=== PATIENT | male | born 1980 | race Caucasian/White ===

== ENCOUNTER 2017-08-24 06:34 | Emergency (ER) | payer BC ==
[2017-08-24 06:39] VITALS: BP 147/98; PULSE 84; RESP 20; TEMP 97.9; O2SAT 100
--- NOTE | 2017-08-24 06:58 | EDPHY ---
H & P Stated Complaint: W/D FROM [facility], PANIC ATTACK. LAST ONE ON TUESDAY Time Seen by Provider: 08/24/17 06:55 - Personal History Current Tetanus/Diphtheria Vaccine: Yes Current Tetanus Diphtheria and Acellular Pertussis (TDAP): Yes - Medical/Surgical History Hx Asthma: No Hx Chronic Respiratory Disease: No Hx Diabetes: No Hx Cardiac Disease: No Hx Renal Disease: No Hx Cirrhosis: No Hx Alcoholism: No Hx HIV/AIDS: No Hx Splenectomy or Spleen Trauma: No Other PMH: depression anxiety - Social History Smoking Status: Current every day smoker Constitutional: Initial Vital Signs Temperature (C) 36.6 C 08/24/17 06:36 Heart Rate 84 08/24/17 06:36 Respiratory Rate 20 08/24/17 06:36 Blood Pressure 147/98 H 08/24/17 06:36 O2 Sat (%) 100 08/24/17 06:36 O2 Delivery Mode Room Air Allergies/Adverse Reactions: escitalopram oxalate [From Lexapro] Allergy (Unverified 08/24/17 06:39) can't sleep lamotrigine [From Lamictal] Allergy (Verified 08/24/17 06:39) Home Medications: Medication Instructions Recorded Hydroxyzine Pamoate [Vistaril] 50 mg PO 08/24/17 QUEtiapine FUMARATE [Seroquel 100 100 mg PO DAILY 08/24/17 mg (*)] Medical Decision Making ED Course/Re-evaluation: CHIEF COMPLAINT: Panic attack, toe pain HISTORY OF PRESENT ILLNESS: This patient is a 37 year old male complaining of a panic attack secondary to Ativan withdrawal worsening since Tuesday. One year ago, he started taking Ativan for two months. 10 months ago, he discontinued the medication, but restarted two months ago. He also takes Seroquel to help with sleep. These are prescribed by his primary care physician, Dr. Cabral in [place]. Lately, he has felt overwhelmed at work and at home and increased his Ativan dosage to three per day from his prescribed two per day. He abruptly ran out of his medication on Tuesday. He has an appointment scheduled next week with his primary care physician, but has been having severe anxiety since Tuesday and today has felt tremulous and nauseous. Additionally, the patient complains of left ring toe pain secondary to stubbing it recently. He denies chest pain, shortness of breath, headache, vomiting, urinary complaints or other associated symptoms. REVIEW OF SYSTEMS: A 10 point review of systems was performed and is negative with the exception of the elements mentioned in the history of present illness. PHYSICAL EXAM: HR, BP, O2 Sat, RR. Temp noted General Appearance: Mildly tremulous, anxious-appearing. Alert, well hydrated, and non-toxic appearing. Head: Atraumatic without scalp tenderness or obvious injury Eyes: Pupils equal, round, reactive to light and accommodation, EOMI, no trauma , no injection. Throat: There is no erythema or exudates, no lesions, normal tonsils, mucus membranes moist. Neck: Supple, nontender, Respiratory: No retractions, no distress, no wheezes, and no accessory muscle use. Cardiovascular: Regular tachycardia. Bilateral dorsalis pedis pulses intact. Good capillary refill all extremities. Gastrointestinal: Abdomen is soft, nontender, non-distended. Musculoskeletal: Ecchymosis to ring toe of left foot. Normal active ROM of all extremities. Neurological: Mildly tremulous. Alert, appropriate, and interactive. The patient has normal DTRs and non-focal cranial nerves, motor, sensory, and cerebellar exam. Skin: No rashes, good turgor, no nodules on palpation. Past medical history: Anxiety, depression. Past surgical history: Noncontributory. Family history: Noncontributory. Social history: Single. Lives in [place]. Daily tobacco use. DIFFERENTIAL DIAGNOSIS: Includes but not limited to anxiety, benzodiazepine withdrawal, alcohol withdrawal, migraine, seizure, cardiac causes. MEDICAL DECISION MAKING: This patient is a 37 year old male presenting with anxiety and nausea secondary to benzodiazepine withdrawal. Exam reveals him to be mildly tremulous. Ecchymosis is present to the ring toe of the left foot. Plan for x-ray of left foot. Plan to administer 2mg PO Ativan for symptom relief. I discussed alternatives to Ativan with the patient for daily use. He states he has tried other medication without good results. 07:21 Administered 4mg PO Zofran for nausea relief. Plan to contact Dr. Cabral ([phone]) for discussion of plan and medication regimen. 07:[address] Cabral, the patient's primary care physician. He visited August 15 and was belligerent in the office, but came the next day and apologized to office staff. She will see him at 11:15am today. Reassessed patient. Discussed the plan for followup with Dr. Cabral today. The patient has excellent range of motion without pain to his toe. He declines x- ray at this time. He is comfortable with discharge home in good condition, and will follow up with Dr. Cabral this morning as scheduled. - Data Points Medications Given: Discontinued Medications Lorazepam (Ativan) 2 mg PO EDNOW ONE Stop: 08/24/17 07:16 Last Admin: 08/24/17 07:19 Dose: 2 mg Ondansetron HCl (Zofran Odt) 4 mg PO EDNOW ONE Stop: 08/24/17 07:22 Last Admin: 08/24/17 07:39 Dose: 4 mg Departure - Departure Disposition: Home, Routine, Self-Care Clinical Impression: Anxiety Contusion of toe of left foot Qualifiers: Encounter type: initial encounter Toe: lesser toe Damage to nail status: without damage Qualified Code(s): S90.122A - Contusion of left lesser toe(s) without damage to nail, initial encounter Benzodiazepine withdrawal Qualifiers: Complication of substance-induced condition: uncomplicated Qualified Code(s): F13.230 - Sedative, hypnotic or anxiolytic dependence with withdrawal, uncomplicated Condition: Good Instructions: Foot Contusion (ED), Anxiety (ED) Additional Instructions: 1. Please follow up with Dr. Cabral this morning at her office at 11:15 as we discussed. Return to the emergency department if you develop chest pain, shortness of breath, seizure, vomiting, severe headache, or other worsening of condition. 2. Rest, ice, and elevation will help with your toe pain. Return to the emergency department for worsening pain, swelling, numbness, weakness or other concerns. You may take Ibuprofen or Tylenol as directed on the packaging as needed for pain. Referrals: [facility]DA,UNKNOWN [Other] - As per Instructions Report Scribed for: Obi Red Report Scribed by: Caitie Gaspar Date of Report: 08/24/17 Time of Report: 07:00
[2017-08-24] MEDS ORDERED: LORazepam 1 MG TAB PO ONE (07:15)
[2017-08-24] MEDS ORDERED: ONDANSETRON DISINTEGRATING 4 MG TAB PO ONE (07:21)
[2017-08-24] MEDS ORDERED: ONDANSETRON DISINTEGRATING 4 MG TAB ONE (07:22)
== END 2017-08-24 07:42 | disposition home or self-care (01) ==
DX: S90.122A Contusion of left lesser toe(s) without damage to nail, initial encounter (principal); F41.9 Anxiety disorder, unspecified; F13.230 Sedative, hypnotic or anxiolytic dependence with withdrawal, uncomplicated; F17.200 Nicotine dependence, unspecified, uncomplicated; W22.8XXA Striking against or struck by other objects, initial encounter

== ENCOUNTER 2017-12-30 01:44 | Emergency (ER) | payer BC ==
--- NOTE | 2017-12-30 01:54 | EDPHY ---
H & P Stated Complaint: hiccups for 2 days Time Seen by Provider: 12/30/17 01:50 HPI/ROS: HPI CHIEF COMPLAINT: Nausea vomiting and hiccups, "Burping A lot" HISTORY OF PRESENT ILLNESS: This patient is a 37-year-old male, 2 weeks ago he had his gallbladder removed in [place] due to chronic cholecystitis and gallstones, he presents emergency room tonight with 2 days of burping a lot, hit calms and nausea vomiting. Nonbilious nonbloody. He denies any diarrhea. He states he has been eating"a clean diet"he denies any significant abdominal pain but he states he has had a lot of nausea and burping. States that he did vomit twice over the past 48 hr. He has not any fever chest pain. He denies any abdominal pain. He decided come the emergency room as he has been having a lot of burping on-going. Past Medical History: Denies significant medical history Past Surgical History: Recent cholecystectomy Social History: Denies drugs alcohol tobacco. Family History: Noncontributory ROS REVIEW OF SYSTEMS: A comprehensive 10 point review of systems is otherwise negative aside from elements mentioned in the history of present illness. Exam Constitutional appears well nontoxic no acute distress triage nursing summary reviewed, vital signs reviewed, awake/alert. Eyes normal conjunctivae and sclera, EOMI, PERRLA. HENT normal inspection, atraumatic, moist mucus membranes, no epistaxis, neck supple/ no meningismus, no raccoon eyes. Respiratory clear to auscultation bilaterally, normal breath sounds, no respiratory distress, no wheezing. Cardiovascular rate normal, regular rhythm, no murmur, no edema, distal pulses normal. Gastrointestinal laparoscopic incision sites appear clean, dry and intact, abdomen is benign, soft, non-tender, no rebound, no guarding, normal bowel sounds, no distension, no pulsatile mass. Genitourinary no CVA tenderness. Musculoskeletal no midline vertebral tenderness, full range of motion, no calf swelling, no tenderness of extremities, no meningismus, good pulses, neurovascularly intact. Skin pink, warm, & dry, no rash, skin atraumatic. Neurologic awake, alert and oriented x 3, AAOx3, moves all 4 extremities equally, motor intact, sensory intact, CN II-XII intact, normal cerebellar, normal vision, normal speech. Psychiatric normal mood/affect. Heme/Lymph/Immune no lymphadenopathy. Differential Diagnosis: Includes but is not limited to in a particular order gastritis, esophagitis, reflux, indigestion, bowel obstruction, biloma leak, infection Medical Decision Making: Plan for this patient IV establishment IV fluid bolus , IV Valium for hicccup said burping, IV Pepcid, check basic blood work and re- evaluate. KUB. Re-evaluation: 0224: Patient was given 5 mg IV Valium without any relief of his hiccups. Will try dose of Thorazine. 0315: Patient's alcohol level noted to be elevated. The patient was adamant that he did not drink any alcohol this evening when he arrived here. He was burping it and having hiccups. I specifically asked him if he had anything to drink as I was going to give him IV Valium and Thorazine if his hiccups did not subside. His blood work has resulted and is pretty much unremarkable except for an elevated alcohol level. He is clinically intoxicated in the emergency room. He did receive 5 mg IV Valium prior to the alcohol level coming back. He is now sleepy. Will need to give him time to metabolize the alcohol and Valium. He additionally did get Thorazine for headache up control which has worked well. He currently is resting comfortably. 0317 patient's x-ray KUB reviewed. No free air. No abnormal bowel gas pattern. 0548: Patient re-evaluated this time resting comfortably no acute distress. He answered well to the bathroom without difficulty. No dizziness. He is ready to go home requesting discharge she has no complaints. He received IV Valium here, and IV Thorazine for hiccups his hiccups have resolved. He is not vomiting. He feels well. Recommend refrain from drinking alcohol. Also went over return precautions understands return emergency room if develops any worsening symptoms questions or concerns. Source: Patient - Personal History Current Tetanus/Diphtheria Vaccine: No Current Tetanus Diphtheria and Acellular Pertussis (TDAP): No - Medical/Surgical History Hx Asthma: No Hx Chronic Respiratory Disease: No Hx Diabetes: No Hx Cardiac Disease: No Hx Renal Disease: No Hx Cirrhosis: No Hx Alcoholism: No Hx HIV/AIDS: No Hx Splenectomy or Spleen Trauma: No Other PMH: depression anxiety cholecystectomy - Social History Smoking Status: Current every day smoker Constitutional: Initial Vital Signs Temperature (C) 36.4 C 12/30/17 01:47 Heart Rate 100 12/30/17 01:47 Respiratory Rate 18 12/30/17 01:47 Blood Pressure 129/76 H 12/30/17 01:47 O2 Sat (%) 94 12/30/17 01:47 O2 Delivery Mode Room Air Allergies/Adverse Reactions: escitalopram oxalate [From Lexapro] Allergy (Verified 12/30/17 01:51) can't sleep lamotrigine [From Lamictal] Allergy (Verified 12/30/17 01:51) Home Medications: Medication Instructions Recorded [facility] 12/30/17 Medical Decision Making - Data Points Laboratory Results: Laboratory Results 12/30/17 02:00 12/30/17 02:00 12/30/17 12/30/17 02:00 02:00 WBC 6.79 10^3/uL 10^3/uL (3.80-9.50) RBC 4.95 10^6/uL 10^6/uL (4.40-6.38) Hgb 15.6 g/dL g/dL (13.7-17.5) Hct 43.9 % % (40.0-51.0) MCV 88.7 fL fL (81.5-99.8) MCH 31.5 pg pg (27.9-34.1) MCHC 35.5 g/dL g/dL (32.4-36.7) RDW 11.9 % % (11.5-15.2) Plt Count 267 10^3/uL 10^3/uL (150-400) MPV 10.4 fL fL (8.7-11.7) Neut % (Auto) 49.6 % % (39.3-74.2) Lymph % (Auto) 34.9 % % (15.0-45.0) Graves % (Auto) 13.5 % H % (4.5-13.0) Eos % (Auto) 1.0 % % (0.6-7.6) Baso % (Auto) 0.7 % % (0.3-1.7) Nucleat RBC Rel Count 0.0 % % (0.0-0.2) Absolute Neuts (auto) 3.36 10^3/uL 10^3/uL (1.70-6.50) Absolute Lymphs (auto) 2.37 10^3/uL 10^3/uL (1.00-3.00) Absolute Monos (auto) 0.92 10^3/uL H 10^3/uL (0.30-0.80) Absolute Eos (auto) 0.07 10^3/uL 10^3/uL (0.03-0.40) Absolute Basos (auto) 0.05 10^3/uL 10^3/uL (0.02-0.10) Absolute Nucleated RBC 0.00 10^3/uL 10^3/uL (0-0.01) Immature Gran % 0.3 % % (0.0-1.1) Immature Gran # 0.02 10^3/uL 10^3/uL (0.00-0.10) Sodium 143 mEq/L mEq/L (135-145) Potassium 5.2 mEq/L mEq/L (3.5-5.2) Chloride 103 mEq/L mEq/L (97-110) Carbon Dioxide 24 mEq/l mEq/l (22-31) Anion Gap 16 mEq/L mEq/L (8-16) BUN 20 mg/dL mg/dL (7-23) Creatinine 1.0 mg/dL mg/dL (0.7-1.3) Estimated GFR > 60 Glucose 98 mg/dL mg/dL (70-100) Calcium 9.3 mg/dL mg/dL (8.5-10.4) Total Bilirubin 0.6 mg/dL mg/dL (0.1-1.4) Conjugated Bilirubin 0.5 mg/dL mg/dL (0.0-0.5) Unconjugated Bilirubin 0.1 mg/dL mg/dL (0.0-1.1) AST 52 IU/L IU/L (17-59) ALT 54 IU/L IU/L (21-72) Alkaline Phosphatase 79 IU/L IU/L (38-126) Total Protein 7.6 g/dL g/dL (6.3-8.2) Albumin 4.6 g/dL g/dL (3.5-5.0) Lipase 128 IU/L IU/L (23-300) Ethyl Alcohol 215 mg/dL H mg/dL (0-10) Medications Given: Discontinued Medications Diazepam (Valium) 5 mg IVP EDNOW ONE Stop: 12/30/17 02:00 Last Admin: 12/30/17 02:09 Dose: 5 mg Famotidine (Pepcid) 20 mg IVP EDNOW ONE Stop: 12/30/17 02:03 Last Admin: 12/30/17 02:09 Dose: 20 mg Sodium Chloride (Ns) 1,000 mls @ 0 mls/hr IV EDNOW ONE; Wide Open PRN Reason: Protocol Stop: 12/30/17 02:03 Last Admin: 12/30/17 02:09 Dose: 1,000 mls Chlorpromazine HCl 50 mg/ (Sodium Chloride) 52 mls @ 62.4 mls/hr IV ONCE ONE Stop: 12/30/17 03:12 Last Admin: 12/30/17 02:57 Dose: 52 mls Departure - Departure Disposition: Home, Routine, Self-Care Clinical Impression: Hiccups Alcohol intoxication Qualifiers: Complication of substance-induced condition: uncomplicated Qualified Code(s): F10.920 - Alcohol use, unspecified with intoxication, uncomplicated Condition: Good Instructions: Hiccups (ED), Alcohol Intoxication (ED) Additional Instructions: 1. Do not drink alcohol for the next 2 months. 2. These may be contributing to her upset stomach and hiccups after gallbladder surgery. Referrals: LESLY MCKEON [Other] - As per Instructions
[2017-12-30] MEDS ORDERED: DIAZEPAM 5 MG/ML 1 ML SYR IVP ONE (01:59)
[2017-12-30] MEDS ORDERED: FAMOTIDINE 20 MG/2 ML SDV IVP ONE (02:02)
[2017-12-30] MEDS ORDERED: NS 1,000 ML IV ONE (02:02)
[2017-12-30 02:13] LABS: PLATELET COUNT 267 10^3/uL (150-400)
[2017-12-30] MEDS ORDERED: chlorproMAZINE HCL 50 MG in NS 50 ML IV ONE (02:23)
[2017-12-30 04:45] VITALS: PULSE 74; RESP 16
[2017-12-30 06:18] VITALS: BP 121/74; TEMP 97.9; O2SAT 96
== END 2017-12-30 06:18 | disposition home or self-care (01) ==
DX: R06.6 Hiccough (principal); F10.920 Alcohol use, unspecified with intoxication, uncomplicated; E86.9 Volume depletion, unspecified; F17.200 Nicotine dependence, unspecified, uncomplicated
CPT/HCPCS: 96365; G0480; J3230; J3360

== ENCOUNTER → 2018-03-17 | Outpatient (CLI) | payer BC | LOC: FIMAGING 10:07 | PROVIDERS: ATTEND Physician Assistant Medical | DX: R40.4 Transient alteration of awareness (principal); S09.90XA Unspecified injury of head, initial encounter; R93.0 Abnormal findings on diagnostic imaging of skull and head, not elsewhere classified ==

== ENCOUNTER → 2018-03-20 | Outpatient (CLI) | payer BC | LOC: BMCIMAGING 14:34 | PROVIDERS: ATTEND Internal Medicine Rheumatology | DX: Z13.820 Encounter for screening for osteoporosis (principal); M85.89 Other specified disorders of bone density and structure, multiple sites; Z82.62 Family history of osteoporosis; Z87.442 Personal history of urinary calculi ==

== ENCOUNTER → 2018-03-23 | Outpatient (CLI) | payer BC ==
--- NOTE | 2018-03-29 20:45 | CPEEG ---
[f rep st] ELECTROENCEPHALOGRAM A 4-HOUR VIDEO ELECTROENCEPHALOGRAM DATE OF STUDY: 03/23/2018 DATE OF INTERPRETATION: 03/29/2018 INTERPRETATION: This 4-hour video EEG recording is normal. There were no potentially epileptogenic abnormalities present in the awake or sleep recordings. The patient did not have any clinical events during the EEG monitoring. REPORT: This 4-hour video EEG contains 10 Hz alpha activity over the posterior head regions. The ba ckground activity was normal and symmetric. There was no abnormal activation at rest, during photic stimulation, or hyperventilation. The patient became drowsy and fell into sustained sleep during the study. There was no abnormal activation during drowsiness, sleep, or during times of arousal. The patient did not have any clinical events during the video EEG monitoring session. /[id number]/MODL
== END ==
LOC: FCPNEURO 07:33
PROVIDERS: ATTEND Physician Assistant Medical
DX: R40.4 Transient alteration of awareness (principal)

== ENCOUNTER → 2018-09-14 | Outpatient (CLI) | payer BC | LOC: FIMAGING 17:41 | PROVIDERS: ATTEND Physician Assistant Medical | DX: S22.060D Wedge compression fracture of T7-T8 vertebra, subsequent encounter for fracture with routine healing (principal); M51.26 Other intervertebral disc displacement, lumbar region; M51.27 Other intervertebral disc displacement, lumbosacral region; M99.53 Intervertebral disc stenosis of neural canal of lumbar region; M99.54 Intervertebral disc stenosis of neural canal of sacral region; M46.96 Unspecified inflammatory spondylopathy, lumbar region; M46.97 Unspecified inflammatory spondylopathy, lumbosacral region ==

== ENCOUNTER → 2018-11-16 | Outpatient (CLI) | payer BC | LOC: FIMAGING 14:13 | PROVIDERS: ATTEND Physical Medicine & Rehabilitation Neuromuscular Medicine | DX: M51.36 Other intervertebral disc degeneration, lumbar region (principal) ==

== ENCOUNTER → 2018-12-25 | Outpatient (CLI) | payer BC ==
[~2018-12-25] MED LIST: GADOBUTROL 10 ML VIAL IVP ONE
== END ==
LOC: FIMAGING 15:46
PROVIDERS: ATTEND Specialist
DX: E23.0 Hypopituitarism (principal)
CPT/HCPCS: A9585

== ENCOUNTER → 2019-02-01 | Outpatient (CLI) | payer BC | LOC: FIMAGING 18:19 | PROVIDERS: ATTEND Neurological Surgery | DX: M54.5 Low back pain (principal); M50.30 Other cervical disc degeneration, unspecified cervical region ==